=== PATIENT | female | born 1950 | race Caucasian/White ===

== ENCOUNTER 2018-10-09 11:59 | Observation (INO) | payer MEDICARE ==
[~2018-10-09] VITALS: Ht 172.7 cm; Wt 71.8 kg
[2018-10-09] MEDS ORDERED: NITROGLYCERIN SINGLE TAB 0.4 MG SL ONE (12:48)
[2018-10-09] MEDS ORDERED: ASPIRIN 81 MG TABLET CHEW ONE (12:48)
[2018-10-09] MEDS ORDERED: ASPIRIN 81 MG TABLET CHEW PO ONE (13:00)
[2018-10-09] MEDS ORDERED: SODIUM CHLORIDE FLUSH 10ML SYR IVF ONE (13:00)
[2018-10-09] MEDS: NITROGLYCERIN SINGLE TAB 0.4 MG SL PRN ×2 (13:06→13:11)
[2018-10-09 13:10] LABS: BASOPHILS # (AUTO) 0.02 x10^3/uL (0-0.1); BASOPHILS % (AUTO) 1 % (0-1); EOSINOPHILS # (AUTO) 0.07 x10^3/uL (0-0.4); EOSINOPHILS % (AUTO) 1 % (1-7); LYMPHOCYTES # (AUTO) 1.88 x10^3/uL (1-3.4); LYMPHOCYTES % (AUTO) 40 % (22-44); MD NO; MEAN CORPUSCULAR HGB CONC 34.2 g/dL (32.4-35.8); MEAN CORPUSCULAR VOLUME 90.6 fL (80-100); MEAN PLATELET VOLUME 8.3 fL (7.4-10.4); MONOCYTES # (AUTO) 0.41 x10^3/uL (0.2-0.8); MONOCYTES % (AUTO) 9 % (2-9); NEUTROPHILS # (AUTO) 2.31 x10^3/uL (1.8-6.8); NEUTROPHILS % (AUTO) 49 % (42-75); PLATELET COUNT 308 x10^3/uL (130-400); RED BLOOD COUNT 4.38 x10^6/uL (3.82-5.3); RED CELL DISTRIBUTION WIDTH 13.7 % (9.6-15.2)
[2018-10-09 13:19] LABS: PROTHROMBIN TIME 10.4 Seconds (9.6-11.5)
[2018-10-09 13:20] LABS: ALANINE AMINOTRANSFERASE 27 U/L (12-78); ALBUMIN 3.8 g/dL (3.4-5.0); ANION GAP 6 mmol/L (5-15); CALCIUM 8.8 mg/dL (8.5-10.1); CHLORIDE 109 mmol/L (98-107); CREATININE 0.85 mg/dL (0.55-1.02)
[2018-10-09 13:25] LABS: ALKALINE PHOSPHATASE 78 U/L (45-117); BILIRUBIN,TOTAL 0.5 mg/dL (0.2-1.0); TROPONIN I < 0.015 ng/mL (0.000-0.045)
[2018-10-09] MEDS ORDERED: VENL37.52 PO (14:07)
[2018-10-09] MEDS ORDERED: ACYC200C4 PO (14:07)
[2018-10-09] MEDS ORDERED: CHOL2000 PO (14:07)
[2018-10-09] MEDS ORDERED: SODIUM CHLORIDE FLUSH 10ML SYR IVF PRN (14:30)
[2018-10-09] MEDS ORDERED: ENALAPRILAT 1.25 MG/ML, 2ML IV PRN (16:00)
[2018-10-09] MEDS ORDERED: NITROGLYCERIN 0.4 MG BOTTLE (25 TABS) SL PRN (16:00)
[2018-10-09] MEDS ORDERED: morphine SULFATE 10 MG/ML, 1ML IV PRN (16:00)
[2018-10-09] MEDS ORDERED: KETOROLAC 30 MG/1 ML IVPush PRN (16:00)
[2018-10-09] MEDS ORDERED: ENOXAPARIN 40 MG/0.4 ML SQ SCH (16:00)
[2018-10-09] MEDS ORDERED: ACETAMINOPHEN 650 MG/20.3 ML UDC PO PRN (16:00)
[2018-10-09] MEDS ORDERED: NITROGLYCERIN 0.4 MG/SPRAY SL PRN (16:00)
[2018-10-09] MEDS ORDERED: NITROGLYCERIN SINGLE TAB 0.4 MG SL PRN (16:00)
[2018-10-09 18:00] VITALS: BP 115/80
[2018-10-09 20:50] VITALS: BP 117/78
[2018-10-09] MEDS: SODIUM CHLORIDE FLUSH 10ML SYR IVF SCH (21:05)
[2018-10-09 21:44] LABS: TROPONIN I < 0.015 ng/mL (0.000-0.045)
[2018-10-10 00:54] VITALS: BP 120/71
[2018-10-10] MEDS ORDERED: ASPIRIN 325 MG TABLET EC PO SCH (06:00)
[2018-10-10 06:35] LABS: TROPONIN I < 0.015 ng/mL (0.000-0.045)
[2018-10-10 06:39] LABS: CHOL/HDL RATIO 2.9; LDL/HDL RATIO 1.7 (0.5-3.0)
[2018-10-10 07:18] VITALS: BP 107/70
[2018-10-10] MEDS: SODIUM CHLORIDE FLUSH 10ML SYR IVF SCH (07:33)
[2018-10-10] MEDS ORDERED: REGADENOSON 0.4 MG/5 ML SYRINGE ONE (08:41)
[2018-10-10] MEDS ORDERED: MAALOX/HYOSCYAMINE/LIDOCAINE 45 ML BTL PO ONE (10:00)
[2018-10-10 13:25] VITALS: BP 101/65
[2018-10-10] MEDS ORDERED: ASPI-621 PO (14:28)
[2018-10-10] MEDS ORDERED: FAMO20TA7 PO (14:28)
[2018-10-10] MEDS ORDERED: FAMOTIDINE 20 MG TABLET PO SCH (21:00)
[2018-10-11] MEDS ORDERED: ASPIRIN 81 MG TABLET EC PO SCH (06:00)
== END 2018-10-10 16:00 | disposition home or self-care (01) ==
LOC: ED 13:55 → INTOOBSV 14:11 → EDIP 14:11 → OBSVTOIN 14:11 → 5SO 17:53 → DCLOUNGE 10-10 15:49
PROVIDERS: ADMIT Hospitalist; ATTEND Hospitalist
DX: R07.89 Other chest pain (principal); F41.9 Anxiety disorder, unspecified; E78.5 Hyperlipidemia, unspecified; M79.7 Fibromyalgia; E78.00 Pure hypercholesterolemia, unspecified; G89.29 Other chronic pain; K21.9 Gastro-esophageal reflux disease without esophagitis; K58.9 Irritable bowel syndrome, unspecified; N95.1 Menopausal and female climacteric states; Z80.8 Family history of malignant neoplasm of other organs or systems
CPT/HCPCS: 36415; 71046; 78452; 80053; 80061; 83880; 84484; 85025; 85610; 85730; 93005; 93017; 99285; A9502; C9898; G0378; J2785